=== PATIENT | male | born 1960 | race Caucasian/White ===

== ENCOUNTER 2017-08-09 21:22 | Emergency (ER) | payer OTHER ==
[2017-08-09] MEDS ORDERED: NS 1,000 ML IV ONE (21:34)
[2017-08-09 21:41] LABS: PLATELET COUNT 197 10^3/uL (150-400)
--- NOTE | 2017-08-09 21:41 | EDPHY ---
General - History Smoking Status: Never smoked Narrative: CHIEF COMPLAINT: Syncope x3 HISTORY OF PRESENT ILLNESS: Patient arrives by EMS and is seen at time arrival. He is awake and alert in no acute distress. He complains of syncopal episodes. This is after marijuana ingestion and alcohol ingestion. He says that he was in a hot tub for 30 min with the heat on high when he stood up and ended up on the ground. He tried ambulating to the house and lost consciousness again. His was with him when he stood up for 3rd time became lightheaded and fell to the ground. He has no headache. He had no chest pain presyncope or at this time. No shortness of breath. No neck pain or stiffness. No pain anywhere on his person. He does feel very thirsty. Marijuana and alcohol ingestion is normal amount for him. He has significant improvements of his lightheadedness at this time with no intervention. REVIEW OF SYSTEMS: Ten systems reviewed and are negative unless otherwise noted in the HPI PCP: [facility] SPECIALISTS: None PAST MEDICAL HISTORY: Uncomplicated medical history no medications PAST SURGICAL HISTORY: Recent colonoscopy routine 10 days ago SOCIAL HISTORY: Nonsmoker. Daily alcohol use. Marijuana use 2-3 times per week. Works as a wood worker. Lives in [place] with his spouse FAMILY HISTORY: Noncontributory EXAMINATION General Appearance: Alert, no distress Head: normocephalic, atraumatic. No Melvin sign. No raccoon eyes. Eyes: Pupils equal and round, no conjunctival pallor or injection. EOMs intact. No nystagmus. ENT, Mouth: Mucous membranes moist. Airway is widely patent. No hemotympanum. No blood in the EACs. Neck: Normal inspection, supple, non-tender. No crepitus, step-off or deformity. Painless range of motion all planes. Respiratory: Lungs are clear to auscultation. No wheezing, rhonchi or crackles Cardiovascular: Regular rate and rhythm. No murmur. Symmetric radial pulses 2+ . Symmetric DP pulses 2+. Gastrointestinal: Abdomen is soft and nontender Back: non-tender, no bony abnormalities Neurological: GCS 15. Cranial nerves 2-12 grossly intact. A&O, nonfocal, no pronator drift. Normal [id number]. Strength is 5/5 in all 4 limbs. Skin: Warm and dry, no rash. No petechiae or purpura. No lacerations or punctures. No ecchymosis Extremities: Nontender, no pedal edema. Symmetric range of motion extremities Psychiatric: Mood and affect normal DIFFERENTIAL DIAGNOSES: Including but not limited to vasovagal syncope, dehydration, PE, ACS MDM: 9:30 p.m. Syncopal that are likely vasovagal. This is after marijuana ingestion, alcohol ingestion and 30 min at a hot tub. This was immediately after standing up out of a hot tub with 2 subsequent episodes very shortly after. He has not stood up since the 3rd 1 feels completely resolved. No complaints of chest pain pre or post syncopal episodes. Vital signs are within normal limits. He is awake alert with no outward signs of trauma and has no headache, neck or back pain. I have ordered laboratory studies, EKG and IV fluid. His spouse is on her way from [place]. 9:55 p.m. CBC unremarkable. Chemistry pending. Vital signs stable. 10:25 p.m. Orthostatics are negative. Laboratory studies are unremarkable. He has received nearly 1 L IV fluid. I have re-evaluated the patient at this time. He is feeling significantly better. He has received 1 L IV fluid. He has no lightheaded or dizziness in bed. Attempt ambulation with assistance. His spouse is now at bedside. 10:40 p.m. Patient has a briskly in the emergency department with no difficulty. He has no symptoms. He is asking to be discharged home. I do feel he is stable to do so. We discuss ED precautions. We discussed follow up with primary care physician. He is comfortable this and discharged home stable condition with his spouse driving him home. EKG interpretation: Dr. Hansen Sinus rhythm with incomplete LBBB. No ischemia. No previous available for comparison SUPERVISION: Patient was independently examined, but I discussed the case with my secondary supervising physician Dr. Hansen ([facility]) - Diagnostics EKG Interpretation: EKG: Complete interpretation has been separately recorded in the [facility] archive. Summary impression: Sinus rhythm, bifascicular block, no prior EKG to compare to (Thien Hansen) - Objective Vital Signs: Initial Vital Signs Temperature (C) 97.3 F 08/09/17 21:29 Heart Rate 70 08/09/17 21:29 Respiratory Rate 18 08/09/17 21:29 Blood Pressure 152/98 H 08/09/17 21:29 O2 Sat (%) 98 08/09/17 21:29 O2 Delivery Mode Room Air Allergies/Adverse Reactions: No Known Allergies Allergy (Unverified 08/09/17 21:34) Home Medications: Medication Instructions Recorded NK [No Known Home Meds] 08/09/17 Laboratory Results: Laboratory Results 08/09/17 21:22 08/09/17 21:22 08/09/17 08/09/17 21:22 21:22 WBC 5.51 10^3/uL 10^3/uL (3.80-9.50) RBC 4.89 10^6/uL 10^6/uL (4.40-6.38) Hgb 16.0 g/dL g/dL (13.7-17.5) Hct 44.9 % % (40.0-51.0) MCV 91.8 fL fL (81.5-99.8) MCH 32.7 pg pg (27.9-34.1) MCHC 35.6 g/dL g/dL (32.4-36.7) RDW 12.2 % % (11.5-15.2) Plt Count 197 10^3/uL 10^3/uL (150-400) MPV 10.2 fL fL (8.7-11.7) Neut % (Auto) 31.6 % L % (39.3-74.2) Lymph % (Auto) 51.4 % H % (15.0-45.0) [place] % (Auto) 9.3 % % (4.5-13.0) Eos % (Auto) 6.2 % % (0.6-7.6) Baso % (Auto) 1.5 % % (0.3-1.7) Nucleat RBC Rel Count 0.0 % % (0.0-0.2) Absolute Neuts (auto) 1.75 10^3/uL 10^3/uL (1.70-6.50) Absolute Lymphs (auto) 2.83 10^3/uL 10^3/uL (1.00-3.00) Absolute Monos (auto) 0.51 10^3/uL 10^3/uL (0.30-0.80) Absolute Eos (auto) 0.34 10^3/uL 10^3/uL (0.03-0.40) Absolute Basos (auto) 0.08 10^3/uL 10^3/uL (0.02-0.10) Absolute Nucleated RBC 0.00 10^3/uL 10^3/uL (0-0.01) Immature Gran % 0.0 % % (0.0-1.1) Immature Gran # 0.00 10^3/uL 10^3/uL (0.00-0.10) Sodium 141 mEq/L mEq/L (135-145) Potassium 4.6 mEq/L mEq/L (3.5-5.2) Chloride 103 mEq/L mEq/L (97-110) Carbon Dioxide 22 mEq/l mEq/l (22-31) Anion Gap 16 mEq/L mEq/L (8-16) BUN 22 mg/dL mg/dL (7-23) Creatinine 1.1 mg/dL mg/dL (0.7-1.3) Estimated GFR > 60 Glucose 92 mg/dL mg/dL (70-100) Calcium 9.5 mg/dL mg/dL (8.5-10.4) Medications Given: Discontinued Medications Sodium Chloride (Ns) 1,000 mls @ 0 mls/hr IV EDNOW ONE; Wide Open PRN Reason: Protocol Stop: 08/09/17 21:35 Last Admin: 08/09/17 21:44 Dose: 1,000 mls Departure - Departure Disposition: Home, Routine, Self-Care Clinical Impression: Vasovagal syncope, Dehydration Alcohol intoxication Qualifiers: Complication of substance-induced condition: with unspecified complication Qualified Code(s): F10.929 - Alcohol use, unspecified with intoxication, unspecified Condition: Good Instructions: Syncope (ED), Lightheadedness (ED) Additional Instructions: 1. Driving restrictions as discussed 2. Increase fluid intake 3. Avoid combining marijuana, alcohol 4. Contact [facility] physician for outpatient follow-up 5. ED precautions as discussed Referrals: [facility] ,. [Edm Groups for Call Sched] - As per Instructions
--- NOTE | 2017-08-09 21:49 | CPEKG ---
Heart Rate: 58 RR Interval: 1034 P-R Interval: 212 QRSD Interval: 108 QT Interval: 448 QTC Interval: 441 P [place]: 49 QRS [place]: -64 T Wave [place]: 4 EKG Severity - ABNORMAL ECG - EKG Impression: SINUS RHYTHM EKG Impression: FIRST DEGREE AV BLOCK EKG Impression: INCOMPLETE RBBB AND LAFB Electronically Signed By: Thien Hansen 09-Aug-2017 22:05:49
[2017-08-09 22:55] VITALS: BP 124/88; PULSE 57; RESP 18; TEMP 97.9; O2SAT 94
== END 2017-08-09 22:54 | disposition home or self-care (01) ==
DX: R55 Syncope and collapse (principal); E86.0 Dehydration; F10.929 Alcohol use, unspecified with intoxication, unspecified; E86.9 Volume depletion, unspecified